=== PATIENT | male | born 1980 | race Caucasian/White ===

== ENCOUNTER 2020-02-07 16:58 | Inpatient (IN) | payer SELFPAY ==
[2020-02-07 17:05] VITALS: BMI 30.8
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
[2020-02-07 17:39] VITALS: RESP 17
[2020-02-07 17:41] VITALS: RESP 16
[2020-02-07 17:47] LABS: Basophils % 0.4 %; Eosinophils # 0.1 10^3/uL (0.0-0.8); Eosinophils % 1.2 %; Hemoglobin 15.4 g/dL (11.7-16.6); Lymphocytes # 2.8 10^3/uL (0.8-4.8); Lymphocytes % 33.1 %; Mean Corpuscular HGB Conc 34.2 g/dL (30.0-36.0); Mean Corpuscular Hemoglobin 30.4 pg (28.0-34.0); Mean Corpuscular Volume 88.9 fL (80-94); Mean Platelet Volume 9.5 fL (7.4-10.4); Monocytes # 0.7 10^3/uL (0.2-0.9); Monocytes % 8.6 %; Neutrophils # 4.8 10^3/uL (1.8-7.7); Neutrophils % 56.5 %; Nucleated Red Blood Cells % 0 %; Platelet Count 298 10^3/cmm (130-400); Red Blood Count 5.06 10^6/uL (4.1-5.3); Red Cell Distribution Width 12.7 % (12.1-15.1); White Blood Count 8.5 10^3/uL (4.0-10.0)
[2020-02-07] MEDS: LORazepam 2 mg Tablet PO (17:50)
[2020-02-07 18:16] LABS: Alanine Aminotransferase 46 U/L (0-41); Albumin Level 4.7 g/dL (3.5-5.2); Alkaline Phosphatase 71 IU/L (40-130); Anion Gap 15.9 (5-19); Aspartate Amino Transferase 32 U/L (0-40); Blood Urea Nitrogen 12 mg/dL (6-20); Carbon Dioxide 27 mmol/L (22-29); Chloride 101 mmol/L (98-107); Creatinine Clr Calc Pharmacy 131.5585; Glomerular Filtration Rate 83.6 mL/min (90-130); Glucose 91 mg/dL (65-115); Osmolality Calculated 286 mOsm/kg (285-295); Potassium 3.9 mmol/L (3.5-5.1); Salicylate 0.9 mg/dL (3-10); Sodium 140 mmol/L (136-145); Total Bilirubin 0.6 mg/dL (0.15-1.2); Total Protein 7.7 g/dL (6.6-8.7)
[2020-02-07 18:33] LABS: Acetaminophen < 5.0 ug/mL (10-30); Alcohol Level < 10 mg/dL (0-10)
[2020-02-07 18:42] LABS: Amphetamines Screen Urine Positive (Negative); Barbiturates Screen Urine Negative (Negative); Benzodiazepines Screen Urine Negative (Negative); Cocaine Screen Urine Negative (Negative); Opiate Screen Urine Negative (Negative); PCP Screen Urine Negative (Negative); THC Screen Urine Negative (Negative)
[2020-02-07] MEDS: ziprasidone 20 mg/mL SDV IM (20:51)
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
[2020-02-07 22:00] VITALS: BP 155/98; O2SAT 96
[2020-02-07 22:50] VITALS: BP 146/90; PULSE 89; RESP 18; TEMP 36.2; O2SAT 97
--- NOTE | 2020-02-08 01:00 | PC.NURSE ---
RESTRAINTS ROSA SHEPARD REMOVED LEFT ARM AND RIGHT LEG FROM RESTRAINTS. PT OFFERED WATER AND TO USE THE RESTROOM. PT TRIED TO SIT UP AND MUMBLED INCOHERENTLY. PT IS RESTING IN BED COMFORTABLY. WILL CONTINUE TO MONITOR. BP - 145/80 P- 71 T- 97.6 R- 16 O2- 97
--- NOTE | 2020-02-08 01:34 | PC.NURSE ---
PT CONTINUES TO BE IN 2 POINT RESTRAINTS W/1:1 SITTER AT BESIDE. PT IS RESTING IN BED W/EYES CLOSED RESPIRATIONS EVEN AND UNLABORED. WILL CONTINUE TO MONITOR.
--- NOTE | 2020-02-08 02:00 | PC.NURSE ---
PT IS NOW IN ONE RESTRAINT. HIS RIGHT WRIST IS RESTRAINED. PT HAS BEEN SLEEPING AND APPEARS TO BE CALMER. RESPIRATIONS ARE EVEN AND UNLABORED. PT TOOK A SIP OF WATER AND WAS OFFERED TO USE THE BATHROM. WILL CONTINUE TO MONITOR.
--- NOTE | 2020-02-08 03:10 | PC.NURSE ---
ROSA RN REMOVED RIGHT WRIST RESTRAINT. PT CONTINUES TO SLEEP WITH RESPIRATIONS EVEN AND UNLABORED. 1:1 CONTINUES TO BE WITH THE PT. WILL CONTINUE TO MONITOR.
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
[2020-02-08 06:00] VITALS: BP 124/78; PULSE 70; RESP 16; TEMP 36.6; O2SAT 99
--- NOTE | 2020-02-08 06:15 | PC.NURSE ---
Attempted to get Pt to move to regular bed. Pt c/o of legs feeling weak. Wants to wait for a while. Will recheck. vitals completed. Pt cooperative. Remains calm at this time. Continue 1:1 for safety.
--- NOTE | 2020-02-08 07:30 | PC.NURSE ---
PT WAS SLEEPING WITHOUT ANY S/S OF DISTRESS WHEN FLOORHAND MADE NURSING ROUNDS. WILL CONT TO MONITOR AND FOLLOW UP NEEDED
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
--- NOTE | 2020-02-08 13:45 | PC.NURSE ---
PT CURRENTLY RESTING WITH EYES CLOSED. NO S/S OF DISTRESS NOTED. WAS AWAKE EARLIER AND SPOKE WITH DR. HAD AN IRRITABLE AFFECT. REMAINS ON 1:1 FOR DX. WILL CONT TO MONITOR NEEDED
[2020-02-08 14:00] VITALS: BP 143/86; PULSE 79; RESP 18; TEMP 36.6; O2SAT 100
[2020-02-08] MEDS: nicotine 2 mg Gum BUCCAL ×2 (15:51→23:31)
[2020-02-08] MEDS: hyDROXYzine 25 mg Capsule 50 MG PO (16:40)
--- NOTE | 2020-02-08 16:40 | PC.NURSE ---
PT CAME TI NURSES STATION AND ASKED FOR MEDICATION FOR ANXIETY. ADMINISTERED VISTARIL ORDERED. WILL CONT TO MONITOR AND FOLLOW UP NEEDED.
[2020-02-08 20:05] VITALS: BP 130/74; PULSE 67; RESP 16; TEMP 36.8; O2SAT 99
[2020-02-08] MEDS: trazodone 50 mg Tablet PO (23:31)
[2020-02-09] MEDS: nicotine 2 mg Gum BUCCAL ×2 (05:18→16:52)
[2020-02-09 06:00] VITALS: BP 137/90; PULSE 85; RESP 18; TEMP 36.6; O2SAT 96
[2020-02-09] MEDS: hyDROXYzine 25 mg Capsule 50 MG PO ×2 (10:53→20:49)
--- NOTE | 2020-02-09 10:54 | PC.NURSE ---
PRN VISTARIL VISTARIL 50MG PO PER PATIENT C/O ANXIETY. WILL CONTINUE TO MONITOR FOR MEDICATION EFFECTIVENESS.
--- NOTE | 2020-02-09 11:50 | PC.NURSE ---
PRN VISTARIL FOLLOW UP MEDICATION EFFECTIVE. NO FURTHER C/O ANXIETY.
[2020-02-09] MEDS: ARIPiprazole 10 mg Tablet PO (13:39)
[2020-02-09 14:00] VITALS: BP 123/66; PULSE 91; RESP 17; TEMP 37.2
--- NOTE | 2020-02-09 14:34 | PM.NPN ---
Subjective NPU Subjective: Interval history: Usman presents today continuing to represent that he does not believe he needs to be here, however we talked about the concerns that we reviewed yesterday. He did accept a trial of Abilify after we discussed the risks, benefits, and alternatives, he was open to a trial. Otherwise he was unchanged. He denied any major issues and reported that he was sleeping fine. Mental Status Exam MSE Comments: This is an overweight, versus obese, white male, with adequate dress, grooming, and limited eye contact. No abnormal movements except for mild psychomotor retardation. More cooperative with exam in no acute distress. Speech was decreased rate and volume. Mood described as okay; affect subdued and slightly less irritable. Thought process, organized. Thought content: patient denied any suicidal or homicidal ideation. There were no delusions noted, but he does seem to have paranoia and fairly guarded demeanor. Memory unreliable, but none were formally tested. Alert and oriented times person and place. Insight and judgment are impaired. Vitals/I&O/Wt Last Vital Signs Temp 98.4 F 02/09/20 20:42 Pulse 61 02/09/20 20:42 Resp 20 H 02/09/20 20:42 BP 145/70 02/09/20 20:42 Pulse Ox 99 02/09/20 20:42 Weight last 48 hrs Weight 104.043 kg Data NPU : 02/07/20 17:35 02/07/20 17:35 A&P Additional A&P Information (1) Drug-induced psychotic disorder: This is a 39 year old, white male, with a history of methamphetamine use and previous diagnosis of schizophrenia, but currently not on medication, possibly struggling with methamphetamine issues, who presents on a 96-hour hold by his parents with some pretty dramatic and concerning information. Continue current medication. Except: Start Abilify 10 mg po qam Encourage individual, group, and milieu therapy. Continue one on one. With his level of volatility, his size, and physical presence, will likely leave on one to one for much of his stay and especially be aware that if he does not show improvement or his irritability stays like this, we may be forced to keep him beyond the 96 hours. We will await the treatment team on Monday and will look for resources for his addiction and recommend the highest level of sober living treatment to which he is willing to commit. (2) Methamphetamine abuse: (3) Schizophrenia: Involuntary Hold Information 96 Hour Hold: 96 Hour Involuntary Admission: Yes 96 Hour Hold Ending Date: 02/13/20 96 Hour Hold Ending Time: 17:20 Attestations NPU Medical Necessity Statement*: Inpatient hospitalization is medically necessary and the clinically appropriate intervention at this time. We will monitor and consider medications as he would allow. Likely length of stay 2-4 days. Coding Level of Care Code Acute Strategic Debriefing Specialist for Neftaly Wilson
[2020-02-09] MEDS: OLANZapine ODT 5 MG TABLET PO (16:21)
--- NOTE | 2020-02-09 16:21 | PC.NURSE ---
Addendum entered by Catherine Simpson LPN 02/09/20 17:18: MEDICATION EFFECTIVE. NO FURTHER C/O. PATIENT IS LYING DOWN RESTING. Original Note: PRN ZYPREXA ZYDIS ZYPREXA ZYDIS 5MG PO PER PATIENT C/O AGITATION/ANXIETY. WILL CONTINUE TO MONITOR FOR MEDICATION EFFECTIVENESS.
[2020-02-09 20:42] VITALS: BP 145/70; PULSE 61; RESP 20; TEMP 36.9; O2SAT 99
[2020-02-09] MEDS: trazodone 50 mg Tablet PO (20:49)
[2020-02-10 06:00] VITALS: BP 163/93; PULSE 60; RESP 20; TEMP 36.6; O2SAT 98
[2020-02-10] MEDS: ARIPiprazole 10 mg Tablet PO (09:58)
[2020-02-10] MEDS: nicotine 2 mg Gum BUCCAL (12:00)
[2020-02-10 14:00] VITALS: BP 151/86; PULSE 78; RESP 18; TEMP 36.9; O2SAT 98
--- NOTE | 2020-02-10 14:17 | P.PN_ITS ---
Subjective NPU Subjective: Interval history: Usman presents today continuing to stress his desire to leave. We continue to share with him our process before we can feel comfortable discharging someone, which will involve a conversation with his parents. He is now endorsing that his plan is to ultimately go back to [place] with them, so speaking with them makes a lot of sense. He took the medication, as prescribed, and continues to take the Abilify which we agreed to give a trial. He is denying any issues, at this time. Mental Status Exam MSE Comments: This is an overweight, white male, with adequate dress, grooming, and eye contact. No abnormal movements, except for psychomotor retardation. Mostly cooperative with exam in no acute distress. Speech was decreased rate and volume. Mood described as fine; affect subdued and slightly irritable. Thought process, organized. Thought content: patient denied any suicidal or homicidal ideation, there were no delusions reported but he still seems to have some guardedness and paranoia, there were no auditory or visual hallucinations reported. Attention and concentration are improving, and memory is still unreliable, but none were formally tested. He is alert and oriented times three. Insight and judgment are limited. Vitals/I&O/Wt Last Vital Signs Temp 98.6 F 02/10/20 22:00 Pulse 68 02/10/20 22:00 Resp 17 02/10/20 22:00 BP 128/78 02/10/20 22:00 Pulse Ox 99 02/10/20 22:00 Weight last 48 hrs Weight 104.043 kg Data NPU : 02/07/20 17:35 02/07/20 17:35 A&P Additional A&P Information (1) Drug-induced psychotic disorder: This is a 39 year old, white male, with a history of methamphetamine use and previous diagnosis of schizophrenia, but currently not on medication, possibly struggling with methamphetamine issues, who presents on a 96-hour hold by his parents with some pretty dramatic and concerning information. Continue current medication. Encourage individual, group, and milieu therapy. Continue one on one. With his level of volatility, his size, and physical presence, will likely leave on one to one for much of his stay and especially be aware that if he does not show improvement or his irritability stays like this, we may be forced to keep him beyond the 96 hours. We will await the treatment team on Monday and will look for resources for his addiction and recommend the highest level of sober living treatment to which he is willing to commit. (2) Methamphetamine abuse: (3) Schizophrenia: Involuntary Hold Information 96 Hour Hold: 96 Hour Involuntary Admission: Yes 96 Hour Hold Ending Date: 02/13/20 96 Hour Hold Ending Time: 17:20 Attestations NPU Medical Necessity Statement*: Inpatient hospitalization is medically necessary and the clinically appropriate intervention at this time. We will monitor and consider medications as he would allow. Likely length of stay 1-3 days. 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
[2020-02-10] MEDS: hyDROXYzine 25 mg Capsule 50 MG PO ×2 (16:24→21:18)
--- NOTE | 2020-02-10 16:24 | PC.NURSE ---
PRN VISTARIL VISTARIL 50MG PO PER PATIENT C/O ANXIETY. WILL CONTINUE TO MONITOR FOR MEDICATION EFFECTIVENESS.
--- NOTE | 2020-02-10 16:41 | PC.SOCIAL ---
collateral information from Mom Uma [phone] family psych history..lots of anxiety issues...sister, uncle family substance abuse history...several alcoholics including dad, both grandfathers, brother and an uncle. patient has been to rehab in 2009 for a month. he was also suicidal at that time. In the last 2 years is when he has been the worse. He was an athletic and hardworking man. 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 went to [employer].. 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
--- NOTE | 2020-02-10 17:30 | PC.NURSE ---
PRN VISTARIL FOLLOW UP MEDICATION EFFECTIVE. NO FURTHER C/O ANXIETY.
[2020-02-10] MEDS: fexofenadine 60 mg Tablet PO (18:39)
[2020-02-10 22:00] VITALS: BP 128/78; PULSE 68; RESP 17; TEMP 37; O2SAT 99
[2020-02-11 06:00] VITALS: BP 158/70; PULSE 58; RESP 16; TEMP 36.9; O2SAT 98
[2020-02-11] MEDS: fexofenadine 60 mg Tablet PO (08:16)
[2020-02-11] MEDS: ARIPiprazole 10 mg Tablet PO (08:16)
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
[2020-02-11 13:15] VITALS: BP 158/70; PULSE 58; RESP 16; TEMP 36.9; O2SAT 98
== END 2020-02-11 13:58 | disposition home or self-care (01) | DRG 897 ==
LOC: ER 20:56 → NP 21:40
PROVIDERS: Emergency Medicine; Admitting Provider Psychiatry & Neurology Psychiatry; Emergency Provider Emergency Medicine; PCP Registered Nurse; Visit Provider Psychiatry & Neurology Psychiatry
DX: F15.159 Other stimulant abuse with stimulant-induced psychotic disorder, unspecified (principal); F20.9 Schizophrenia, unspecified; F40.10 Social phobia, unspecified; F17.210 Nicotine dependence, cigarettes, uncomplicated
CPT/HCPCS: 12345; 36415; 80053; 80306; 80307; 85025; 96372; 99284; J3486; J3490

== ENCOUNTER → 2020-05-20 14:21 | Outpatient (BNVA) | payer OTHER, SELFPAY | PROVIDERS: PCP Registered Nurse; Visit Provider Nurse Practitioner Family | DX: Z11.59 Encounter for screening for other viral diseases (principal); R50.9 Fever, unspecified; J06.9 Acute upper respiratory infection, unspecified | CPT/HCPCS: 87635 ==

== ENCOUNTER → 2020-06-02 15:00 | Outpatient (BNVA) | payer MEDICAID, SELFPAY | PROVIDERS: PCP Registered Nurse; Visit Provider Internal Medicine | DX: E11.9 Type 2 diabetes mellitus without complications (principal); R76.8 Other specified abnormal immunological findings in serum; B18.2 Chronic viral hepatitis C | CPT/HCPCS: 80053; 82105; 85025; 87522 ==

== ENCOUNTER 2020-06-25 07:50 | Outpatient (CLI) | payer MEDICAID, SELFPAY ==
--- NOTE | 2020-06-25 08:00 | US_ITS ---
WS: [id number] RIGHT UPPER QUADRANT ULTRASOUND HISTORY: Hepatitis C COMPARISON: None available. Liver: 16.6 cm in length. Normal size liver. Attenuation and increased echogenicity from hepatic stea tosis. No mass identified. The entire liver is not well visualized due to attenuation. Gallbladder: Normally distended gallbladder with no stones or wall thickening. CBD: 0.6 cm Pancreas: Not well visualized. Right kidney: 11.4 cm in length. Normal size and echogenicity. No hydronephrosis or mass. Aorta and IVC: Unremarkable abdominal aorta and IVC. No ascites. US/US liver [id number] IMPRESSION: 1. Technically difficult evaluation of the RIGHT upper quadrant due to body anglin bitus. 2. Normal size liver with mild hepatic steatosis. 3. Negative gallbladder.
== END 2020-06-25 07:51 | disposition home or self-care (01) ==
PROVIDERS: PCP Registered Nurse; Visit Provider Internal Medicine
DX: R76.8 Other specified abnormal immunological findings in serum (principal)
CPT/HCPCS: 76705

== ENCOUNTER → 2020-08-27 07:58 | Outpatient (BNVA) | payer MEDICAID, SELFPAY | PROVIDERS: PCP Registered Nurse; Visit Provider Psychiatry & Neurology Psychiatry | DX: F41.9 Anxiety disorder, unspecified (principal); F20.0 Paranoid schizophrenia; F15.20 Other stimulant dependence, uncomplicated | CPT/HCPCS: 99214 ==

== ENCOUNTER → 2020-09-24 12:35 | Outpatient (BNVA) | payer MEDICAID, SELFPAY | PROVIDERS: PCP Registered Nurse; Visit Provider Psychiatry & Neurology Psychiatry | DX: F20.0 Paranoid schizophrenia (principal); F15.20 Other stimulant dependence, uncomplicated | CPT/HCPCS: 99214 ==

== ENCOUNTER → 2020-11-03 10:56 | Outpatient (BNVA) | payer MEDICAID, SELFPAY | PROVIDERS: PCP Registered Nurse; Visit Provider Internal Medicine | DX: B18.2 Chronic viral hepatitis C (principal) | CPT/HCPCS: 87522 ==

== ENCOUNTER → 2021-03-02 08:17 | Outpatient (BNVA) | payer MEDICAID, SELFPAY | PROVIDERS: PCP Registered Nurse; Visit Provider Psychiatry & Neurology Psychiatry | DX: F32.9 Major depressive disorder, single episode, unspecified (principal); F20.0 Paranoid schizophrenia; F15.20 Other stimulant dependence, uncomplicated; Z79.899 Other long term (current) drug therapy; Z03.89 Encounter for observation for other suspected diseases and conditions ruled out | CPT/HCPCS: 80053; 80061; 83036; 84443; 85025; 99214 ==

== ENCOUNTER 2021-04-21 20:00 | Outpatient (CLI) | payer MEDICAID, SELFPAY | END 2021-04-21 20:01 | disposition home or self-care (01) | LOC: SLEEP 04-22 09:45 | PROVIDERS: PCP Registered Nurse; Visit Provider Registered Nurse | DX: G47.33 Obstructive sleep apnea (adult) (pediatric) (principal) | CPT/HCPCS: 95810 ==

== ENCOUNTER → 2021-05-20 12:46 | Outpatient (BNVA) | payer MEDICAID, SELFPAY | PROVIDERS: PCP Registered Nurse; Visit Provider Psychiatry & Neurology Psychiatry | DX: F32.9 Major depressive disorder, single episode, unspecified (principal); F20.0 Paranoid schizophrenia; Z03.89 Encounter for observation for other suspected diseases and conditions ruled out; Z79.899 Other long term (current) drug therapy; F15.20 Other stimulant dependence, uncomplicated | CPT/HCPCS: 99214 ==

== ENCOUNTER → 2021-06-04 12:45 | Outpatient (BNVA) | payer MEDICAID, SELFPAY | PROVIDERS: PCP Registered Nurse; Visit Provider Counselor Mental Health | DX: F32.0 Major depressive disorder, single episode, mild (principal); F15.20 Other stimulant dependence, uncomplicated; F41.9 Anxiety disorder, unspecified; F20.0 Paranoid schizophrenia; F06.30 Mood disorder due to known physiological condition, unspecified | CPT/HCPCS: 90834 ==

== ENCOUNTER → 2021-06-18 13:46 | Outpatient (BNVA) | payer MEDICAID, SELFPAY | PROVIDERS: PCP Registered Nurse; Visit Provider Counselor Mental Health | DX: F32.9 Major depressive disorder, single episode, unspecified (principal); F15.20 Other stimulant dependence, uncomplicated; F41.9 Anxiety disorder, unspecified; F20.0 Paranoid schizophrenia; F06.30 Mood disorder due to known physiological condition, unspecified | CPT/HCPCS: 90832 ==

== ENCOUNTER → 2021-07-02 13:53 | Outpatient (BNVA) | payer MEDICAID, SELFPAY | PROVIDERS: PCP Registered Nurse; Visit Provider Counselor Mental Health | DX: F32.9 Major depressive disorder, single episode, unspecified (principal); F15.20 Other stimulant dependence, uncomplicated; F41.9 Anxiety disorder, unspecified; F20.0 Paranoid schizophrenia; F06.30 Mood disorder due to known physiological condition, unspecified | CPT/HCPCS: 90832 ==

== ENCOUNTER → 2021-07-22 13:30 | Outpatient (BNVA) | payer MEDICAID, SELFPAY | PROVIDERS: PCP Registered Nurse; Visit Provider Psychiatry & Neurology Psychiatry | DX: F32.9 Major depressive disorder, single episode, unspecified (principal); F20.0 Paranoid schizophrenia; Z03.89 Encounter for observation for other suspected diseases and conditions ruled out; Z79.899 Other long term (current) drug therapy; F15.20 Other stimulant dependence, uncomplicated | CPT/HCPCS: 99214 ==

== ENCOUNTER → 2021-07-29 12:51 | Outpatient (BNVA) | payer MEDICAID, SELFPAY | PROVIDERS: PCP Registered Nurse; Visit Provider Counselor Mental Health | DX: F32.9 Major depressive disorder, single episode, unspecified (principal); F15.20 Other stimulant dependence, uncomplicated; F41.9 Anxiety disorder, unspecified; F20.0 Paranoid schizophrenia; F06.30 Mood disorder due to known physiological condition, unspecified; F43.12 Post-traumatic stress disorder, chronic | CPT/HCPCS: 90832 ==

== ENCOUNTER → 2021-08-19 15:48 | Outpatient (BNVA) | payer MEDICAID, SELFPAY | PROVIDERS: PCP Registered Nurse; Visit Provider Counselor Mental Health | DX: F32.9 Major depressive disorder, single episode, unspecified (principal); F15.20 Other stimulant dependence, uncomplicated; F41.9 Anxiety disorder, unspecified; F20.0 Paranoid schizophrenia; F06.30 Mood disorder due to known physiological condition, unspecified | CPT/HCPCS: 90832 ==

== ENCOUNTER → 2021-11-30 15:48 | Outpatient (BNVA) | payer MEDICAID, SELFPAY | PROVIDERS: PCP Registered Nurse; Visit Provider Psychiatry & Neurology Psychiatry | DX: F32.9 Major depressive disorder, single episode, unspecified (principal); F20.0 Paranoid schizophrenia; F15.20 Other stimulant dependence, uncomplicated; Z03.89 Encounter for observation for other suspected diseases and conditions ruled out | CPT/HCPCS: 99214 ==

== ENCOUNTER → 2022-04-04 11:01 | Outpatient (BNVA) | payer MEDICAID, SELFPAY | PROVIDERS: PCP Registered Nurse; Visit Provider Nurse Practitioner | DX: F20.0 Paranoid schizophrenia (principal); F15.10 Other stimulant abuse, uncomplicated | CPT/HCPCS: 99214 ==

== ENCOUNTER → 2024-01-08 09:22 | Outpatient (BNVA) | payer MEDICAID, SELFPAY | PROVIDERS: PCP Registered Nurse; Visit Provider Nurse Practitioner | DX: Z79.899 Other long term (current) drug therapy (principal); F32.9 Major depressive disorder, single episode, unspecified; F20.0 Paranoid schizophrenia; F15.10 Other stimulant abuse, uncomplicated | CPT/HCPCS: 80061; 83036 ==

== ENCOUNTER → 2024-10-31 07:34 | Outpatient (BNVA) | payer MEDICAID, SELFPAY | PROVIDERS: PCP Registered Nurse; Visit Provider Registered Nurse | DX: R10.9 Unspecified abdominal pain (principal); G43.109 Migraine with aura, not intractable, without status migrainosus; K21.9 Gastro-esophageal reflux disease without esophagitis; M54.50 Low back pain, unspecified | CPT/HCPCS: 81000 ==